=== PATIENT | female | born 1955 | race Caucasian/White ===

== ENCOUNTER 2020-11-03 16:54 | Outpatient (CLI) | payer BC, SELFPAY | END 2020-11-03 16:55 | disposition home or self-care (01) | LOC: ANHCOVIDVC 16:54 | PROVIDERS: PCP Family Medicine | DX: Z23 Encounter for immunization (principal) | CPT/HCPCS: 0001A; 91300 ==

== ENCOUNTER 2020-11-24 16:59 | Outpatient (CLI) | payer BC, SELFPAY | END 2020-11-24 17:00 | disposition home or self-care (01) | LOC: ANHCOVIDVC 16:59 | PROVIDERS: PCP Family Medicine | DX: Z23 Encounter for immunization (principal) | CPT/HCPCS: 0002A; 91300 ==

== ENCOUNTER 2020-12-04 16:21 | Outpatient (CLI) | payer BC, SELFPAY ==
--- NOTE | ~2020-12-04 | MR_ITS ---
EXAMINATION: MR lumbar spine wo con DATE: 12/04/2020 17:22 INDICATION: Other spondylosis and myelopathy. Low back pain. TECHNIQUE: Magnetic resonance imaging (MRI) of the lumbar spine was performed without intravenous con trast. Sequences included sagittal T2-weighted FSE, sagittal T2-weighted FS FSE, sagittal T1-weighted FSE, and axial T2-weighted FSE. COMPARISON: None FINDINGS: There is 5 degrees levocurvature of lumbar spine. There is severely decreased disc height a t T10-T11, T11-T12, T12-L1, L3-L4, L4-L5, and L5-S1 and mildly decreased disc height at L1-L2 and L2- L3 with endplate remodeling. The endplate remodeling is worst at T12-L1. There is anterior wedging of T10, T11, T12, and L1 vertebral bodies. The distal spinal cord signal intensity is normal. The conus medullaris is at T12-L1. There is a 2.7 cm cyst in left kidney. The following disc levels are specif ically discussed: T12-L1: The disc is bulging and has an annular fissure. There is moderate bilateral facet joint osteo arthritis. There is mild right and moderate left neural foraminal stenosis. There is mild central can al stenosis. L1-L2: The disc is bulging. There is severe bilateral facet joint osteoarthritis. There is mild bilat eral neural foraminal stenosis. There is mild central canal stenosis. L2-L3: The disc is bulging. There is severe bilateral facet joint osteoarthritis. There is mild bilat eral neural foraminal stenosis. There is mild central canal stenosis. L3-L4: The disc is bulging and has an annular fissure. There is severe bilateral facet joint osteoart hritis. There is moderate right and mild left neural foraminal stenosis. There is mild central canal stenosis. L4-L5: The disc is bulging and has an annular fissure. There is severe bilateral facet joint osteoart hritis. There is mild bilateral neural foraminal stenosis. There is moderate central canal stenosis. L5-S1: The disc is bulging and has an annular fissure. There is severe bilateral facet joint osteoart hritis. There is mild bilateral neural foraminal stenosis. There is mild central canal stenosis. IMPRESSION: 1. Severe lumbar and lower thoracic spondylosis. Reviewed, dictated and finalized at location A.
== END 2020-12-04 16:22 | disposition home or self-care (01) ==
PROVIDERS: PCP Family Medicine; Visit Provider Family Medicine
DX: M47.16 Other spondylosis with myelopathy, lumbar region (principal); M47.894 Other spondylosis, thoracic region
CPT/HCPCS: 72148

== ENCOUNTER → 2021-02-02 00:20 | Outpatient (CLI) | payer BC, SELFPAY ==
[2021-02-02 21:52] LABS: SARS-CoV-2 RNA PCR Negative
== END ==
PROVIDERS: PCP Family Medicine; Visit Provider Internal Medicine Gastroenterology
DX: Z01.812 Encounter for preprocedural laboratory examination (principal); Z20.822 Contact with and (suspected) exposure to COVID-19
CPT/HCPCS: C9803; U0003; U0005

== ENCOUNTER 2021-02-05 01:02 | Day surgery (SDC) | payer BC, SELFPAY ==
[2021-01-27 09:33] VITALS: BMI 35.7
[2021-02-05 08:12] VITALS: BMI 33.0
--- NOTE | 2021-02-05 08:13 | PC.NURSE ---
OLD BRUISING TO THE RIGHT DORSAL HAND. COBAN WRAP ON RIGHT THUMB FROM RECENT SURGERY. BRACE ON. OLD BRUISING NOTED TO THE BASE OF THE THUMB BELOW THE DRESSING.
[2021-02-05 08:16] VITALS: BP 131/70; PULSE 76; RESP 18; TEMP 36.6; O2SAT 99
--- NOTE | 2021-02-05 08:34 | WPDANESEPPF ---
Anes - Initial Pre Proc Eval Procedure: Operation Date: 02/05/21 09:00 Proposed Procedures p Esophagogastroduodenoscopy & Screening Colonoscopy - Kalia Aguayo MD Date/Time: 02/05/21 08:34 Surgeon: Kalia Aguayo MD Pre Op Diagnosis: GERD, Neoplasm Screening Patient Data Age: 65 Gender: F Height: 5 ft 5 in Weight: 90.2 kg Last Vital Signs Temp 97.8 F 02/05/21 08:16 Pulse 76 02/05/21 08:16 Resp 18 02/05/21 08:16 BP 131/70 02/05/21 08:16 Pulse Ox 99 02/05/21 08:16 Allergies Allergy/AdvReac Type Severity Reaction Status Date / Time escitalopram AdvReac Unknown Other Verified 02/05/21 08:10 Home Medications Medication Instructions Recorded Confirmed Type diazepam 5 mg tablet 5 mg PO ONCE #90 tablet 11/13/19 02/05/21 Rx alprazolam 0.25 mg tablet 0.25 mg PO TID PRN #270 tablet 10/27/20 02/05/21 Rx amlodipine 10 mg tablet 10 mg PO DAILY #90 tablet 10/27/20 02/05/21 Rx diclofenac sodium 50 mg 50 mg PO BID #180 tablet 10/27/20 02/05/21 Rx tablet,delayed release hydrochlorothiazide 12.5 mg tablet 12.5 mg PO DAILY #90 tablet 11/10/20 02/05/21 Rx lisinopril 10 mg tablet 10 mg PO DAILY #90 tablet 12/01/20 02/05/21 Rx sodium,potassium,mag sulfates 17.5 See Rx Instructions PO .COMPLEX 01/14/21 02/05/21 Rx gram-3.13 gram-1.6 gram oral soln #354 ml aspirin 500 mg PO Q4-6H PRN 01/27/21 02/05/21 History nitrofurantoin 100 mg PO Q12H 5 Days #10 cap 02/02/21 02/05/21 Rx monohydrate/macrocrystals 100 mg capsule tramadol 50 mg tablet 100 mg PO Q8H PRN #540 tablet 02/02/21 02/05/21 Rx Patient hx anesthesia problems: none Family hx anesthesia problems: none PMFSH Past Medical History Medical History (Updated 02/05/21 @ 08:34 by Bertrand Brown MD) Arthritis of carpometacarpal (CMC) joint of thumb Essential (primary) hypertension Gastroesophageal reflux disease without esophagitis Lumbar spondylosis with myelopathy Migraine variant without intractability Obesity (BMI 30.0-34.9) Family History Family History Father Family history of liver disease Social History Social History Alcohol intake: never Living arrangements: with family Richard Chacon Final PreProcedure Day of Procedure 02/05/21 08:34 Patient weight: obese Heart: regular rate and rhythm Lungs: clear to auscultation Airway: Mallampati scale class II Neurological: alert and oriented Last oral intake: >/= 8 hours ASA classification: III Emergent: no Anesthetic plan: proceed Anesthesia type and monitoring: general GIVS and standard monitoring Informed Consent: The patient's anesthetic plan and its attendant risks and benefits were discussed with the patient/family/POA. Questions were solicited and answers provided to the satisfaction of the patient/family/POA.
[2021-02-05] MEDS: LACTATED RINGERS 1,000 ML 30 ML IV CONT (08:41)
[2021-02-05 09:42] VITALS: BP 92/58; PULSE 74; RESP 18; O2SAT 100
--- NOTE | 2021-02-05 09:46 | PM.HPGS ---
History of Present Illness History of Present Illness Consent: Risks, benefits, and alternatives have been discussed and questions answered. Patient agrees to proceed with procedure. Chief complaint: GERD, Neoplasm Screening Narrative: Diane Oliveira is a 65 year old female who has been suffering from severe heartburn. this is particularly bad if she is lying prone in bed . She occasionally uses [id number] medications for her symptoms. She denies dysphagia. She is undergoing colon cancer screening as well Review of Systems Review of Systems: All systems reviewed & are unremarkable except as noted in HPI and below PMFSH Past Medical History Medical History Arthritis of carpometacarpal (CMC) joint of thumb Essential (primary) hypertension Gastroesophageal reflux disease without esophagitis Lumbar spondylosis with myelopathy Migraine variant without intractability Obesity (BMI 30.0-34.9) Family History Family History Father Family history of liver disease Social History Social History Alcohol intake: never Living arrangements: with family Meds Home Medications and Allergies Home Medications Medication Instructions Recorded Confirmed Type diazepam 5 mg tablet 5 mg PO ONCE #90 tablet 11/13/19 02/05/21 Rx alprazolam 0.25 mg tablet 0.25 mg PO TID PRN #270 tablet 10/27/20 02/05/21 Rx amlodipine 10 mg tablet 10 mg PO DAILY #90 tablet 10/27/20 02/05/21 Rx diclofenac sodium 50 mg 50 mg PO BID #180 tablet 10/27/20 02/05/21 Rx tablet,delayed release hydrochlorothiazide 12.5 mg tablet 12.5 mg PO DAILY #90 tablet 11/10/20 02/05/21 Rx lisinopril 10 mg tablet 10 mg PO DAILY #90 tablet 12/01/20 02/05/21 Rx sodium,potassium,mag sulfates 17.5 See Rx Instructions PO .COMPLEX 01/14/21 02/05/21 Rx gram-3.13 gram-1.6 gram oral soln #354 ml aspirin 500 mg PO Q4-6H PRN 01/27/21 02/05/21 History nitrofurantoin 100 mg PO Q12H 5 Days #10 cap 02/02/21 02/05/21 Rx monohydrate/macrocrystals 100 mg capsule tramadol 50 mg tablet 100 mg PO Q8H PRN #540 tablet 02/02/21 02/05/21 Rx omeprazole 40 mg PO DAILY #30 cap 02/05/21 Rx Allergies Allergy/AdvReac Type Severity Reaction Status Date / Time escitalopram AdvReac Unknown Other Verified 02/05/21 08:10 Vital Signs Vital Signs - 24 hr 02/05/21 08:16 Temperature 36.6 C Pulse Rate 76 Respiratory Rate 18 Blood Pressure 131/70 Pulse Oximetry 99 Exam Const: General: alert Orientation/consciousness: patient oriented x3 Resp: Auscultation: clear to auscultation bilaterally Cardio: Rhythm: regular rhythm GI: GI Palp: Yes Soft to palpation and No Tenderness to palpation present (GI) Neuro: General: patient oriented x3 Assessment and Plan Assessment and plan (1) GERD (gastroesophageal reflux disease): Code(s): K21.9 - Gastro-esophageal reflux disease without esophagitis Status: Acute Assessment and Plan: EGD with possible biopsy or dilatation or cautery. (2) Colon cancer screening: Code(s): Z12.11 - Encounter for screening for malignant neoplasm of colon Status: Acute Assessment and Plan: Colonoscopy with possible biopsy or polypectomy or cautery or injection of substances.
[2021-02-05 09:52] VITALS: BP 104/64; PULSE 67; RESP 15; O2SAT 100
[2021-02-05 10:02] VITALS: BP 103/76; PULSE 64; RESP 16; O2SAT 100
== END 2021-02-05 10:16 | disposition home or self-care (01) ==
PROVIDERS: PCP Family Medicine; Visit Provider Internal Medicine Gastroenterology
PROC: 0DJ08ZZ Inspection of Upper Intestinal Tract, Via Natural or Artificial Opening Endoscopic (ICD-10-PCS; CPT 43235; principal; 2021-02-05 09:00)
DX: Z12.11 Encounter for screening for malignant neoplasm of colon (principal); K57.30 Diverticulosis of large intestine without perforation or abscess without bleeding; K25.9 Gastric ulcer, unspecified as acute or chronic, without hemorrhage or perforation; K29.50 Unspecified chronic gastritis without bleeding; K21.00 Gastro-esophageal reflux disease with esophagitis, without bleeding; I10 Essential (primary) hypertension; M47.16 Other spondylosis with myelopathy, lumbar region; E66.9 Obesity, unspecified; Z68.33 Body mass index [BMI] 33.0-33.9, adult
CPT/HCPCS: 45378; 43239; 87081; 88305; J2001; J2704; J7120

== ENCOUNTER 2022-07-03 08:23 | Outpatient (CLI) | payer MEDICARE, SELFPAY ==
--- NOTE | ~2022-07-03 | MM_ITS ---
EXAMINATION: MM screening jama BI w nghia HISTORY: Screening mammogram TECHNIQUE: Craniocaudal and mediolateral oblique 3-D tomosynthesis images were obtained and synthetic 2-D images were generated. CAD analysis was submitted and interpreted. COMPARISON: 11/09/2017, 05/10/2014 bilateral screening mammogram BREAST PARENCHYMAL COMPOSITION: There are scattered areas of fibroglandular density. FINDINGS: Bilateral small circumscribed stable axillary lymph nodes. New mid depth circumscribed 5 mm opacity is noted in the upper central left breast. Diagnostic left m ammogram and left breast ultrasound examination are recommended. Otherwise there is no evidence of suspicious mass, calcification, or architectural distortion to sugg est malignancy in either breast. There has been no other suspicious interval change. IMPRESSION: 1. New 5 mm circumscribed opacity in the upper mid left breast at mid depth 2. Diagnostic left mammogram and targeted left breast ultrasound examination are recommended BI-RADS Category 0: Incomplete: Needs additional imaging evaluation. Reviewed, dictated and finalized at location A. 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 New 5 mm circumscribed opacity in the upper mid left breast at mid depth 2. Diagnostic left mammogram and targeted left breast ultrasound examination ar yaya recommended BI-RADS Category 0: Incomplete: Needs additional imaging evaluation.
--- NOTE | ~2022-07-03 | DEXA_ITS ---
Bone Density Report Name: ASTER VIDALES Age: 67 Sex: Female Ethnicity: White Date of : 1955 Indication: osteopenia; height loss; prior fracture; postmenopausal Referring Provider: JOHN BRISENO Study: Bone densitometry was performed. Exam Date: July 03, 2022 Accession number: [id number] Bone Density: Region BMD T-score Z-score Classification AP Spine(L1-L4) 0.926 -1.1 0.7 Osteopenia Femoral Neck (Left) 0.596 -2.3 -0.8 Osteopenia Total Hip (Left) 0.690 -2.1 -0.8 Osteopenia Femoral Neck (Right) 0.598 -2.3 -0.8 Osteopenia Total Hip (Right) 0.647 -2.4 -1.2 Osteopenia Total Hip Mean 0.669 -2.3 -1.0 Osteopenia World Health Organization criteria for BMD impression classify patients as: Normal (T-score at or above -1.0), Osteopenia (T-score between -1.0 and -2.5), or Osteoporosis (T-score at or below -2.5). 10-year Fracture Risk(1): Major Osteoporotic Fracture 20% Hip Fracture 5.6% Reported Risk Factors: [place] (), Neck BMD=0.596, BMI=28.1, previous fracture, smoking (1) FRAX(R) Version 3.08. Fracture probability calculated for an untreated patient. Fracture probability may be lower if the patient has received treatment. Previous Exams: Region Exam Age BMD T-score BMD Change BMD Change Date g/cm2 vs Baseline vs Previous Total Hip(Left) 07/03/2022 67 0.690 -2.1 -0.016 (-2.3%) -0.016 (-2.3%) 11/09/2017 62 0.706 -1.9 Total Hip(Right) 07/03/2022 67 0.647 -2.4 -0.046 (-6.6%) -0.046 (-6.6%) 11/09/2017 62 0.693 -2.0 *Denotes significance at 95% confidence level, LSC for Total Hip = 0.027 g/cm2 Clinical Information Provided by Patient: Has had a low trauma fracture Smokes Has used the following medications: Calcium Patient maximum height was 66 Menopause Age: 47 Does not regularly consume dairy products Drinks caffeinated beverages Onset of menses at age 17 Number of children 3 Impression: The patient has low bone mass, based on the Right Total Hip T-score. The patient has an estimated ten-year risk of hip fracture of 5.6% and an estimated ten-year risk of major fracture of 20%, based on the WHO FRAX algorithm. The patient has risk factors, including: smoking, previous fracture. The BMD for the Total Hip(Right) decreased, changing by -6.6% since the last DXA exam. Discussion: BONE DENSITY IS LOW AT ONE OR MORE SKELETAL SITES. THE PATIENT'S BMD AND CLINICAL RISK FACTORS CONTRIBUTE TO THIS PATIENT'S HIGH RISK OF FRACTURE.
== END 2022-07-03 08:24 | disposition home or self-care (01) ==
PROVIDERS: PCP Family Medicine; Visit Provider Family Medicine
DX: Z12.31 Encounter for screening mammogram for malignant neoplasm of breast (principal); R29.890 Loss of height; R92.8 Other abnormal and inconclusive findings on diagnostic imaging of breast; M85.88 Other specified disorders of bone density and structure, other site; M85.852 Other specified disorders of bone density and structure, left thigh; M85.851 Other specified disorders of bone density and structure, right thigh
CPT/HCPCS: 77063; 77067; 77080

== ENCOUNTER 2022-07-26 12:10 | Outpatient (CLI) | payer MEDICARE, SELFPAY ==
--- NOTE | ~2022-07-26 | MMUS_ITS ---
EXAMINATION: MM diagnostic jama LT w nghia, US breast LT limited HISTORY: Left breast mass on screening mammogram TECHNIQUE: Additional 3-D tomosynthesis images of the left breast were performed and synthetic 2-D im ages were generated. CAD analysis was submitted and interpreted. High resolution limited left breast ultrasound was performed. COMPARISON: 07/03/2022, 11/09/2017, 05/10/2014 FINDINGS: MAMMOGRAPHIC FINDINGS: There is a 5 mm oval, circumscribed, high density mass in the middle third of the upper breast at the 1:00 location 7 cm from the nipple. ULTRASOUND: There is a 4 mm oval, circumscribed, parallel, hypoechoic mass with an echogenic rim, no posterior fe atures, and no internal vascularity at the 12:00 location 7 cm from the nipple. IMPRESSION: 1. Indeterminate left breast mass. Given the absence of history of trauma in this location, further e valuation with ultrasound-guided biopsy is recommended. BI-RADS category 4, suspicious findings. Reviewed, dictated and finalized at location A. N RESOURCES COMPENSATION ANALYST IMPRESSION: 1. Indeterminate left breast mass. Given the absence of history of trauma in th is location, further evaluation with ultrasound-guided biopsy is recommended. BI-RADS category 4, suspicious findings.
== END 2022-07-26 12:11 | disposition home or self-care (01) ==
PROVIDERS: PCP Family Medicine; Visit Provider Family Medicine
DX: Z12.31 Encounter for screening mammogram for malignant neoplasm of breast (principal); R92.8 Other abnormal and inconclusive findings on diagnostic imaging of breast
CPT/HCPCS: 76642; 77061; 77065; G0279

== ENCOUNTER 2022-08-04 09:01 | Outpatient (CLI) | payer MEDICARE, SELFPAY ==
--- NOTE | ~2022-08-04 | MMUS_ITS ---
EXAMINATION: US breast biopsy LT w image, MM post biopsy invasive LT DATE: 08/04/2022 10:19 (accession [id number]), 08/04/2022 10:32 (accession [id number]) INDICATION: Indeterminate mass at the 12:00 location of the left breast. Ultrasound-guided core biops y is requested to evaluate for malignancy. TECHNIQUE AND FINDINGS: The risks and potential benefits of the procedure were discussed with the patient including bleeding and infection. A time out was performed. The skin of the left breast was prepared and draped in usual sterile fashion. 1% lidocaine was used for superficial anesthesia. 1% lidocaine with epinephrine was used for deep anesthesia. A vacuum-assisted biopsy needle was advanced through to the outer edge of the region of interest from a lateral approach utilizing sonographic guidance. A total of two tissue core samples were obtained through the lesion. A tissue marker clip was then placed at the biopsy site. Hemostasis was achieved. A sterile bandage was applied. The patient tolerated procedure well and there was no evidence of immediate complication. The patient was given verbal instructions to return to the Emergency Department in the event of severe breast pa in or rapid breast enlargement. A two view left breast mammogram was obtained to document tissue neo er clip placement. The mass was no longer visible after the second sample. Final position of the biop sy marker is approximately 10 mm posterior to the biopsy site. IMPRESSION: 1. Successful ultrasound-guided vacuum-assisted biopsy of left breast mass with tissue marker placeme nt. Reviewed, dictated and finalized at location A. 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 Successful ultrasound-guided vacuum-assisted biopsy of left breast mass with tissue marker placement.
== END 2022-08-04 09:02 | disposition home or self-care (01) ==
LOC: ANHIMG 09:01
PROVIDERS: PCP Family Medicine; Visit Provider Family Medicine
DX: R92.8 Other abnormal and inconclusive findings on diagnostic imaging of breast (principal)
CPT/HCPCS: 19083; 88305; 88342; A4648

== ENCOUNTER 2022-12-29 15:04 | Outpatient (CLI) | payer MEDICARE, SELFPAY ==
--- NOTE | ~2022-12-29 | MR_ITS ---
EXAMINATION: MR lumbar spine wo con DATE: 12/29/2022 16:43 INDICATION: Low back pain. Left hip and leg pain. TECHNIQUE: Magnetic resonance imaging (MRI) of the lumbar spine was performed without intravenous con trast. Sequences included sagittal T2-weighted FSE, sagittal T2-weighted FS FSE, sagittal T1-weighted FSE, and axial T2-weighted FSE. COMPARISON: Lumbar spine MRI 12/04/2020 FINDINGS: There is 5 degrees dextrocurvature of lumbar spine. There is chronic anterior wedging of T1 1 and T12 vertebral bodies. There is a burst fracture of L2 with 1/5 loss of height, edema-like marro w signal intensity, and retropulsion of bone 3 mm into central spinal canal. There is severely decrea sed disc height at T10-T11, T11-T12, and T12-L1, moderately decreased disc height at L1-L2 and L2-L3, and severely decreased disc height from L3-L4 through L5-S1 with endplate remodeling. There is ligam entum flavum hypertrophy at the disc levels from L1-L2 through L4-L5. There is a 3.3 cm cyst in left kidney. The following disc levels are specifically discussed: L1-L2: The disc is bulging and has an annular fissure. There is severe bilateral facet joint osteoart hritis. There is mild right and moderate left neural foraminal stenosis. There is mild central canal stenosis. L2-L3: The disc is bulging and has an annular fissure. There is severe bilateral facet joint osteoart hritis. There is mild bilateral neural foraminal stenosis. There is mild central canal stenosis. L3-L4: The disc is bulging. There is severe bilateral facet joint osteoarthritis. There is moderate r ight and mild left neural foraminal stenosis. There is mild central canal stenosis. L4-L5: The disc is bulging and has an annular fissure. There is severe bilateral facet joint osteoart hritis. There is mild bilateral neural foraminal stenosis. There is mild central canal stenosis. L5-S1: The disc is bulging and has an annular fissure. There is severe bilateral facet joint osteoart hritis. There is mild bilateral neural foraminal stenosis. There is mild central canal stenosis. IMPRESSION: 1. Acute/subacute burst fracture of L2. 2. Severe lumbar spondylosis, stable from 12/04/2020. Reviewed, dictated and finalized at location A.
--- NOTE | ~2022-12-29 | XR_ITS ---
EXAMINATION: XR hip LT min 2V DATE: 12/29/2022 15:37 INDICATION: Left hip pain. TECHNIQUE: 2 views of left hip were obtained. COMPARISON: None. FINDINGS: Bone alignment is normal. No fracture. There is mild left hip osteoarthritis. IMPRESSION: 1. Mild left hip osteoarthritis. Reviewed, dictated and finalized at location A.
== END 2022-12-29 15:05 | disposition home or self-care (01) ==
PROVIDERS: PCP Family Medicine
DX: M47.896 Other spondylosis, lumbar region (principal); S32.021A Stable burst fracture of second lumbar vertebra, initial encounter for closed fracture; X58.XXXA Exposure to other specified factors, initial encounter; M16.12 Unilateral primary osteoarthritis, left hip
CPT/HCPCS: 72148; 73502

== ENCOUNTER 2023-03-16 15:46 | Outpatient (CLI) | payer MEDICARE, SELFPAY ==
--- NOTE | ~2023-03-16 | CT_ITS ---
EXAMINATION: CT thoracic lumbar wo con DATE: 03/16/2023 16:11 INDICATION: Back pain. Compression fracture of L2. TECHNIQUE: Computed tomography (CT) of the thoracic and lumbar spine was performed without intravenou s contrast. Automated exposure control and iterative reconstruction technique were employed. The dose -length product was 1320.93 mGy-cm. COMPARISON: Lumbar spine MRI 12/29/2022 FINDINGS: CT THORACIC SPINE: There is 13 degrees levoscoliosis of thoracic spine. There is mild chronic anterio r wedging of T11 vertebral body. There is a chronic compression fracture of T12 with 2/5 loss of heig ht. There is mildly decreased disc height at T4-T5, T5-T6, and T6-T7, severely decreased disc height at T7-T8, mildly decreased disc height at T8-T9, moderately decreased disc height at T9-T10, and juliana rely decreased disc height at T10-T11 and T11-T12. There is multilevel facet joint osteoarthritis, se carlos on the right at T8-T9 and T9-T10 and on the left at T1-T2, T8-T9, and T9-T10. On the right, ther e is mild neural foraminal stenosis at T5-T6, T6-T7, T7-T8, T9-T10, and T10-T11. On the left, there i s mild neural foraminal stenosis at T1-T2 and T8-T9. There is mild central canal stenosis at T7-T8, T 9-T10, T10-T11, and T11-T12. CT LUMBAR SPINE: There is 12 degrees dextroscoliosis of thoracolumbar spine. There is a burst fractur e of inferior endplate of L1 with 1/5 loss of height, new from 12/29/2022. There is a burst fracture of L2 with 3/5 loss of height and retropulsion of bone 5 mm into central spinal canal, worsened from 12/29/2022. There is 3 mm retrolisthesis of L1 on L2. There is severely decreased disc height at T12-L1, moderately decreased disc height at L1-L2, and severely decreased disc height from L3-L4 through L5-S 1. There is Baastrup disease at L2-L3 and L3-L4. The following disc levels are specifically discussed : T12-L1: The disc is bulging. There is mild bilateral facet joint osteoarthritis. There is mild right and moderate left neural foraminal stenosis. There is mild central canal stenosis. L1-L2: The disc is bulging. There is severe right and moderate left facet joint osteoarthritis. There is mild right and moderate left neural foraminal stenosis. There is moderate central canal stenosis. L2-L3: The disc is bulging. There is severe bilateral facet joint osteoarthritis. There is mild bilat eral neural foraminal stenosis. There is mild central canal stenosis. L3-L4: The disc is bulging. There is severe bilateral facet joint osteoarthritis. There is moderate a nd mild left neural foraminal stenosis. There is mild central canal stenosis. L4-L5: The disc is bulging. There is severe bilateral facet joint osteoarthritis. There is mild bilat eral neural foraminal stenosis. There is mild central canal stenosis. There is moderate stenosis of r ight lateral recess. L5-S1: The disc is bulging. There is severe bilateral facet joint osteoarthritis. There is mild bilat eral neural foraminal stenosis. There is mild central canal stenosis. IMPRESSION: 1. Acute/subacute L1 burst fracture, new from 12/29/2022. 2. Subacute L2 burst fracture, worsened from 12/29/2022. 3. Severe thoracic and lumbar spondylosis. 4. Thoracic levoscoliosis and thoracolumbar dextroscoliosis. Reviewed, dictated and finalized at location A.
--- NOTE | ~2023-03-16 | XR_ITS ---
EXAMINATION: XR scoliosis survey DATE: 03/16/2023 16:28 INDICATION: Scoliosis. TECHNIQUE: Anteroposterior and lateral views of the entire spine standing with breast gutierrez were ob tained. COMPARISON: CT thoracic and lumbar spine 03/16/2023 FINDINGS: Left femoral head stands 7 mm higher than the right. There are 12 pairs of ribs. There are 5 nonrib-bearing lumbar segments. There is a subacute burst fracture of L2 with 3/5 loss of height. T here is 5 mm retrolisthesis of L1 on L2. There is a burst fracture of L1 inferior endplate with 1/5 l oss of height. There is mild chronic anterior wedging of T11 and T12 vertebral bodies. There is mild kyphosis of cervical spine. There is 18 degrees levoscoliosis from T3 to T12 by the Mcintyre method. Ther e is 16 degrees dextroscoliosis from T12 to L2. There is severe cervical, thoracic, and lumbar spondy losis. IMPRESSION: 1. 18 degrees levoscoliosis from T3 to T12 and 16 degrees dextroscoliosis from T12 to L2. 2. Left femoral head stands 7 mm higher than the right. 3. Acute/subacute burst fracture of L1. 4. Subacute burst fracture of L2. 5. Severe spondylosis. Reviewed, dictated and finalized at location A.
== END 2023-03-16 15:47 | disposition home or self-care (01) ==
PROVIDERS: PCP Family Medicine; Visit Provider Neurological Surgery
DX: M41.9 Scoliosis, unspecified (principal); S32.020A Wedge compression fracture of second lumbar vertebra, initial encounter for closed fracture; X58.XXXA Exposure to other specified factors, initial encounter; M47.894 Other spondylosis, thoracic region; M47.896 Other spondylosis, lumbar region
CPT/HCPCS: 72082; 72128; 72131

== ENCOUNTER 2023-04-11 09:47 | Outpatient (CLI) | payer MEDICARE, SELFPAY ==
--- NOTE | 2023-04-11 | ECG_ITS ---
Measurements Intervals [place] Rate: 85 P: 54 GA: 163 QRS: 35 QRSD: 97 T: 72 QT: 325 QTc: 388 Interpretive Statements SINUS RHYTHM NORMAL ELECTROCARDIOGRAM NO PREVIOUS ECG AVAILABLE FOR COMPARISON Electronically Signed On 04-11-2023 16:57:23 CDT by Heron Leo M.D.
== END 2023-04-11 09:48 | disposition home or self-care (01) ==
LOC: ANHLAB 09:49 → ANHCARD 09:51
PROVIDERS: PCP Family Medicine; Visit Provider Neurological Surgery
DX: Z01.818 Encounter for other preprocedural examination (principal)
CPT/HCPCS: 93005

== ENCOUNTER 2023-08-30 09:13 | Outpatient (CLI) | payer MEDICARE, SELFPAY ==
--- NOTE | ~2023-08-30 | XR_ITS ---
EXAM: XR thoracic spine 2V DATE: 08/30/2023 09:46 HISTORY: STATUS POST THORACIC SPINAL FUSION . COMPARISON: None available. FINDINGS: Osteopenia. Thoracolumbar fusion, no complication detected. Grade 1 anterolistheses at T8- 9 and T9-10. Moderate height loss at T8. Mild height loss at T11-L1. Multilevel degenerative disc dis ease. Incidental note of senescent/interstitial changes in the lungs. IMPRESSION: Grade 1 anterolistheses at T8 and T9-10. Reviewed, dictated and finalized at location K. 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
--- NOTE | ~2023-08-30 | XR_ITS ---
EXAM: XR lumbar spine 2-3V DATE: 08/30/2023 09:46 HISTORY: STATUS POST THORACIC SPINAL FUSION . COMPARISON: None available. FINDINGS: Thoracolumbar fusion spanning T10-S2 with bone graft material. Uncomplicated appearing kedar dware. The vertebral bodies are aligned. Stable severe compression deformity at L2. Stable mild compr ession deformity/height loss at T11, T12, and L1. Decreased osseous mineralization. Clear lung bases. . IMPRESSION: Extensive thoracolumbar posterior fusion. No radiographic evidence of hardware-related co mplication. Stable multilevel compression deformities. Reviewed, dictated and finalized at location K. Y FARM SUPERVISOR IMPRESSION: Extensive thoracolumbar posterior fusion. No radiographic evidence of hardware-related complication. Stable multilevel compression deformities.
== END 2023-08-30 09:14 | disposition home or self-care (01) ==
PROVIDERS: PCP Family Medicine; Visit Provider Neurological Surgery
DX: Z98.1 Arthrodesis status (principal)
CPT/HCPCS: 72070; 72100

== ENCOUNTER 2023-10-17 11:49 | Outpatient (CLI) | payer MEDICARE, SELFPAY ==
--- NOTE | ~2023-10-17 | XR_ITS ---
EXAMINATION:XR cervical spine min 6V DATE: 10/17/2023 12:10 INDICATION: Cervical radiculopathy TECHNIQUE: AP, lateral in neutral, flexion, extension, lateral swimmers and odontoid views of the cer vical spine are provided. COMPARISON: None FINDINGS: There are 2 mm of anterolisthesis of C4 on C5. No hypermobility is present with flexion or extension. The odontoid process is intact. No fracture is identified. There is severe loss of interve rtebral disc space height at C5-6 and C6-7. The vertebral body heights are maintained. Small degenera tive osteophytes project from the anterior endplates of multiple vertebral bodies. There is multileve l severe facet and uncovertebral joint osteoarthritis. Prevertebral soft tissues are normal. IMPRESSION: 1. Severe cervical spondylosis without acute findings. Reviewed, dictated and finalized at location B. UCT ASSURANCE ENGINEER
== END 2023-10-17 11:50 ==
PROVIDERS: PCP Family Medicine; Visit Provider Family Medicine
DX: M47.22 Other spondylosis with radiculopathy, cervical region (principal)
CPT/HCPCS: 72052

== ENCOUNTER 2023-12-05 09:49 | Outpatient (CLI) | payer MEDICARE, SELFPAY ==
--- NOTE | ~2023-12-05 | XR_ITS ---
Thoracic spine: Clinical Indication: Status post fusion COMPARISON: 08/30/2023 AP and lateral views were performed. Stable posterior fusion hardware extending from probably T10 through the lumbar spine. There is mild compression fracture of T8. There is compression fracture of L1 and L2. Paravertebral soft tissues ap pear normal. Impression: No significant change from prior exam. Stable posterior fixation hardware from T10 through the lumbar spine. Stable compression fractures of T8, L1, L2. Reviewed, dictated and finalized at location . Impression: No significant change from prior exam. Stable posterior fixation hardware from T10 through the lumbar spine. Stable co mpression fractures of T8, L1, L2.
--- NOTE | ~2023-12-05 | XR_ITS ---
Lumbosacral Spine: AP and lateral views Clinical History: Status post fusion COMPARISON: 08/30/2023 FINDINGS: Findings: Posterior fusion hardware is present from T10 through S2. Compression fractures of L2 and L 1 are present. The sacroiliac joints are normally outlined. Impression: Stable posterior fusion from T10 through S2, with compression fractures of L1 and L2. Reviewed, dictated and finalized at location . Impression: Stable posterior fusion from T10 through S2, with compression fractures of L1 a nd L2.
== END 2023-12-05 09:50 ==
PROVIDERS: PCP Family Medicine; Visit Provider Neurological Surgery
DX: Z98.1 Arthrodesis status (principal)
CPT/HCPCS: 72070; 72100

== ENCOUNTER 2024-03-30 14:06 | Outpatient (CLI) | payer MEDICARE, SELFPAY ==
--- NOTE | ~2024-03-30 | XR_ITS ---
EXAMINATION: XR thoracic spine 2V, XR lumbar spine 2-3V DATE: 03/30/2024 14:25 INDICATION: Scoliosis. TECHNIQUE: 1. AP and lateral views of the thoracic spine were obtained. 2. AP, lateral and coned-down lateral lumbosacral views of the lumbar spine were obtained. COMPARISON: Radiographs dated 12/05/[address] dated 03/16/2023 FINDINGS: Mild lower thoracolumbar kyphosis with 15 degree dextroscoliosis. 10 degrees compensatory thoracic le vocurvature. T10-S2 instrumented posterior spinal fusion with bilateral vertical anu and pedicle scre w fixations at each level with the exception of L2 where there is a chronic burst fracture with 50% v ertebral body height loss. Additional unchanged compression fractures with 20-25% anterior vertebral body height loss at T8, T11, T12 and L1. There appear to be laminectomies at several levels in the mi d to upper lumbar spine. Severe disc height loss at T11-T12, T12-L1, L4-L5 and L5-S1. Additional juliana re mild to moderate disc height loss the thoracic spine with lower thoracic predominance. Moderate os teoarthritis at the bilateral sacroiliac joints. IMPRESSION: 1. 15 degrees thoracolumbar dextroscoliosis with 10 degree thoracic levocurvature. 2. Multiple compression fractures in the lumbar and lower thoracic spine with T10-S2 instrumented pos terior spinal fusion spanning a more severe L2 burst fracture with unchanged 50% vertebral body heigh t loss. 3. Severe lumbar and lower thoracic spondylosis. Reviewed, dictated and finalized at location A. IMPRESSION: 1. 15 degrees thoracolumbar dextroscoliosis with 10 degree thoracic levocurvatu re. 2. Multiple compression fractures in the lumbar and lower thoracic spine with T 10-S2 instrumented posterior spinal fusion spanning a more severe L2 burst frac ture with unchanged 50% vertebral body height loss. 3. Severe lumbar and lower thoracic spondylosis.
== END 2024-03-30 14:07 ==
PROVIDERS: PCP Family Medicine; Visit Provider Neurological Surgery
DX: M41.84 Other forms of scoliosis, thoracic region (principal); M48.56XA Collapsed vertebra, not elsewhere classified, lumbar region, initial encounter for fracture; M48.54XA Collapsed vertebra, not elsewhere classified, thoracic region, initial encounter for fracture; M43.06 Spondylolysis, lumbar region; M43.04 Spondylolysis, thoracic region
CPT/HCPCS: 72070; 72100

== ENCOUNTER 2024-11-28 08:48 | Outpatient (CLI) | payer MEDICARE, SELFPAY ==
--- NOTE | ~2024-11-28 | DEXA_ITS ---
Bone Density Report Name: ASTER VIDALES Age: 69 Sex: Female Ethnicity: White Date of : 1955 Indication: osteopenia; height loss; prior fracture; Referring Provider: JOHN BRISENO Study: Bone densitometry was performed. Exam Date: November 28, 2024 Accession number: [id number] Bone Density: Region BMD T-score Z-score Classification Femoral Neck (Left) 0.644 -1.8 -0.2 Osteopenia Total Hip (Left) 0.660 -2.3 -1.0 Osteopenia Femoral Neck (Right) 0.635 -1.9 -0.3 Osteopenia Total Hip (Right) 0.606 -2.8 -1.4 Osteoporosis Total Hip Mean 0.633 -2.6 -1.2 Osteoporosis World Health Organization criteria for BMD impression classify patients as: Normal (T-score at or above -1.0), Osteopenia (T-score between -1.0 and -2.5), or Osteoporosis (T-score at or below -2.5). 10-year Fracture Risk: FRAX not reported because: Some T-score for Spine Total or Hip Total or Femoral Neck at or below -2.5 Previous Exams: Region Exam Age BMD T-score BMD Change BMD Change Date g/cm2 vs Baseline vs Previous Total Hip(Left) 11/28/2024 69 0.660 -2.3 -0.046 (-6.6%) -0.030 (-4.4%) 07/03/2022 67 0.690 -2.1 -0.016 (-2.3%) -0.016 (-2.3%) 11/09/2017 62 0.706 -1.9 Total Hip(Right) 11/28/2024 69 0.606 -2.8 -0.087 (-12.6% -0.041 (-6.4%) 07/03/2022 67 0.647 -2.4 -0.046 (-6.6%) -0.046 (-6.6%) 11/09/2017 62 0.693 -2.0 *Denotes significance at 95% confidence level, LSC for Total Hip = 0.027 g/cm2 # Denotes dissimilar scan types or analysis methods Clinical Information Provided by Patient: Has had a low trauma fracture Smokes Has used the following medications: Vitamin D, Calcium Patient maximum height was 66 Menopause Age: 47 No regular weight bearing exercise Does not regularly consume dairy products Drinks caffeinated beverages Onset of menses at age 17 Number of children 3 Impression: The patient has established osteoporosis, based on the Right Total Hip T-score and the existence of a prior fracture. The patient has risk factors, including: smoking, previous fracture. No significant bone loss was observed. Discussion: HIGH RISK OF FRACTURE. BONE DENSITY IS UNDESIRABLY LOW AT ONE OR MORE SKELETAL SITES, CONSISTENT WITH POSTMENOPAUSAL OSTEOPOROSIS. This patient's lowest T-score, in a patient who has previously fractured, meets the World Health Organization's (WHO) criteria for severe osteoporosis. In untreated patients, the risk of osteoporotic fracture increases approximately two-fold for each 1.0 SD decrease in T-score. Low bone density is not the only risk factor for fracture; also consider factors such as patient's age, frailty or poor health, risk of falling, risk of injury, previous osteoporotic fracture, family history of osteoporosis, cigarette smoking, low body weight, etc. Not everyone with low bone mineral density has osteoporosis; osteomalacia and other metabolic bone disorders should also be considered. Patients who have osteoporosis should be evaluated for specific diseases and conditions (secondary causes) that may cause or contribute to bone loss. The [place] Association of Clinical Endocrinologists (AACE) and National Osteoporosis Foundation (NOF) recommend pharmacologic intervention for all postmenopausal women whose T-score is in this range. The patient should follow a healthful lifestyle (good nutrition with adequate calcium and vitamin D, and appropriate weight-bearing exercise). Follow-Up: Consider a repeat BMD and Vertebral Fracture Assessment (VFA) exam in 2 years or sooner if medically necessary, to reassess this patient's status. Reported by: JEREMY on 11/28/2024 9:24:00 AM. Reviewed, dictated and finalized at location ACaesar MANE
--- OUTSIDE RECORDS SUMMARY | 2024-11-28 09:06 | XMS_ITS | Referral Summary ---
Author Organization [facility] Address [address] [place] [address] Care Team Providers Care Psychology Tech Name Role Phone Heorn Abreu MD Primary Care Provider [phone] [phone] Allergies No known active allergies Medications diazePAM (VALIUM) 5 mg tablet Take 5 mg by mouth every 6 (six) hours as needed. 1 07/31/2018 Active diclofenac XR (VOTAREN XR) 100 mg 24 hr tablet Take 100 mg by mouth daily. 2 07/14/2018 Active hydroCHLOROthiaz anson (MICROZIDE) 12.5 mg capsule Take by mouth daily. 3 08/07/2018 Active traMADol ER (ULTRAM-ER) 300 mg 24 hr tablet Take 300 mg by mouth daily. 3 05/14/2018 Active multivitamin tabletIndication s:Vitamin Deficiency Prevention Take 1 tablet by mouth. Active chromium-brindal crum 200-500 mcg-mg tablet Take by mouth. Active raNITIdine (ZANTAC) 150 mg tablet Take 150 mg by mouth as needed for heartburn. Active omega-3 fatty acids/dha/epa (MEGARED [id number]-7 ORAL) Take by mouth. Active Active Problems Problem Noted Date Diagnosed Date Dizziness 08/10/2018 Assessment & Plan (08/10/2018 4:20 PM DIRECTOR OF REHABILITATIVE SERVICES): She has a very mild orthostatic drop in her blood pressure, but with a blood pressure over 140 systolic she still felt slightly dizzy. Much of her dizziness actually sounds like vertigo, and she does have a past history of ear issues. Dyspnea on exertion 08/09/2018 Assessment & Plan (08/10/2018 4:19 PM DIRECTOR OF REHABILITATIVE SERVICES): Sudden onset of exertional dyspnea several months ago. It is surprising that she is still able to walk on her treadmill without being limited by dyspnea. Her resting electrocardiogram and exam are unremarkable. Will obtain an echo Doppler and stress echo to further evaluate. If the showed no cardiac explanation, pulmonary testing may be the next step. Essential hypertension 08/09/2018 Assessment & Plan (08/10/2018 4:20 PM DIRECTOR OF REHABILITATIVE SERVICES): Blood pressure is mildly elevated, which she says is common for her in a doctor's office. At home, her blood pressure is normal. No change at this time in antihypertensive therapy. Would continue to avoid lisinopril for now, although her cough has not yet improved. Cough may have predated the beginning of lisinopril, so may be completely unrelated to Marvin inhibitors. Social History Tobacco Use Types Packs/Day Years Used Date Smoking Tobacco: Never Smokeless Tobacco: Never Alcohol Use Standard Drinks/Week Comments No 0 (1 standard drink = 0.6 oz pur e alcohol) Comments Unknown Sex and Gender Information Value Date Recorded Sex Assigned at Not on file Legal Sex Female 6:13 AM DIRECTOR OF REHABILITATIVE SERVICES Gender Identity Not on file Sexual Orientation Not on file Last Filed Vital Signs Vital Sign Reading Time Taken Comments Blood Pressure 142/80 08/09/2018 4:06 PM DIRECTOR OF REHABILITATIVE SERVICES Pulse 62 08/09/2018 2:41 PM DIRECTOR OF REHABILITATIVE SERVICES Temperature - - Respiratory Rate - - Oxygen Saturation - - Inhaled Oxygen Concentration - - Weight 85.7 kg (189 lb) 08/09/2018 2:41 PM DIRECTOR OF REHABILITATIVE SERVICES Height 163.8 cm (5' 4.5 ) 08/09/2018 2:41 PM DIRECTOR OF REHABILITATIVE SERVICES Body Mass Index 31.94 08/09/2018 2:41 PM DIRECTOR OF REHABILITATIVE SERVICES Plan of Treatment Not on file Insurance [employer] ACCESS ANTHEM ACCESS Care Teams Psychology Tech Relationship Specialty Start Date End Date Heron Abreu MD PCP - General 11/09/17
--- OUTSIDE RECORDS SUMMARY | 2024-11-28 09:06 | XMS_ITS | Clinical Summary ---
Author Organization [facility] Address [address] [place] [address] Care Team Providers Care Pile Driver Engineer Name Role Phone Heron Abreu MD Primary Care Provider [phone] [phone] Allergies No known active allergies Medications diazePAM [...] for heartburn. Active omega-3 fatty acids/dha/epa (MEGARED [id number] ORAL) Take by mouth. Active Active Problems Problem Noted Date Diagnosed Date Dizziness 08/10/2018 Assessment & Plan (08/10/2018 4:20 PM CHIEF EXECUTIVE): She has a very mild orthostatic drop in her blood pressure, but with a blood pressure over 140 systolic she still felt slightly dizzy. Much of her dizziness actually sounds like vertigo, and she does have a past history of ear issues. Dyspnea on exertion 08/09/2018 Assessment & Plan (08/10/2018 4:19 PM CHIEF EXECUTIVE): Sudden onset of exertional dyspnea several months [...] 08/09/2018 Assessment & Plan (08/10/2018 4:20 PM CHIEF EXECUTIVE): Blood pressure is mildly elevated, which she says is common for her in a doctor's office. At home, her blood pressure is normal. No change at this time in antihypertensive therapy. Would continue to avoid lisinopril for now, although her cough has not yet improved. Cough may have predated the beginning of lisinopril, so may be completely unrelated to Marvin inhibitors. Surgical History Surgery Date Site/Laterality Comments CT STAPEDECTOMY/STAPEDOTOMY Stapedotomy - (Added by TW Conv) CT NEUROPLASTY &/TRANSPOS MEDIAN NRV CARPAL TUNNE Neuroplasty Decompression Median Nerve At Carpal Tunnel - (Added by TW Conv) CT LIG/TRNSXJ FLP TUBE ABDL/ VAG APPR UNI/BI Tubal Ligation - (Added by TW Conv) Social History Tobacco Use Types Packs/Day Years Used Date Smoking Tobacco: Never Smokeless Tobacco: Never Alcohol Use Standard Drinks/Week Comments No 0 (1 standard drink = 0.6 oz pur e alcohol) Comments Unknown Sex and Gender Information Value Date Recorded Sex Assigned at Not on file Legal Sex Female 6:13 AM CHIEF EXECUTIVE Gender Identity Not on file Sexual Orientation Not on file Obstetrics History Last Filed Vital Signs Vital Sign Reading Time Taken Comments Blood Pressure 142/80 08/09/2018 4:06 PM CHIEF EXECUTIVE Pulse 62 08/09/2018 2:41 PM CHIEF EXECUTIVE Temperature - - Respiratory Rate - - Oxygen Saturation - - Inhaled Oxygen Concentration - - Weight 85.7 kg (189 lb) 08/09/2018 2:41 PM CHIEF EXECUTIVE Height 163.8 cm (5' 4.5 ) 08/09/2018 2:41 PM CHIEF EXECUTIVE Body Mass Index 31.94 08/09/2018 2:41 PM CHIEF EXECUTIVE Plan of Treatment Not on file Insurance ANTHEM ACCESS ANTHEM ACCESS Care Teams Pile Driver Engineer Relationship Specialty Start Date End Date Heron Abreu MD PCP - General 11/09/17
== END 2024-11-28 08:49 | disposition home or self-care (01) ==
LOC: ANHIMG 08:50
PROVIDERS: PCP Family Medicine; Visit Provider Family Medicine
DX: S32.009A Unspecified fracture of unspecified lumbar vertebra, initial encounter for closed fracture (principal); Z78.0 Asymptomatic menopausal state; X58.XXXA Exposure to other specified factors, initial encounter; M85.88 Other specified disorders of bone density and structure, other site; M85.852 Other specified disorders of bone density and structure, left thigh; M85.851 Other specified disorders of bone density and structure, right thigh; M81.0 Age-related osteoporosis without current pathological fracture
CPT/HCPCS: 77080

== ENCOUNTER 2024-12-05 12:46 | Outpatient (CLI) | payer MEDICARE, SELFPAY ==
--- NOTE | ~2024-12-05 | MM_ITS ---
EXAMINATION: MM diagnostic jama BI w nghia HISTORY: History of previous benign left breast biopsy. TECHNIQUE: Additional 3-D tomosynthesis images of the breasts were performed and synthetic 2-D images were generated. CAD analysis was submitted and interpreted. COMPARISON: Comparison to multiple prior studies sequentially, with oldest reviewed study dated 11/09. BREAST PARENCHYMAL COMPOSITION: Not dense: There are scattered areas of fibroglandular density. FINDINGS: There are no suspicious masses, calcifications or architectural distortion in either breast to suggest malignancy. IMPRESSION: 1. No evidence for malignancy in either breast. 2. Routine yearly screening mammogram and regular clinical breast examination are recommended. BI-RADS Category 1: Negative Reviewed, dictated and finalized at location A. IMPRESSION: 1. No evidence for malignancy in either breast. 2. Routine yearly screening mammogram and regular clinical breast examination a re recommended. BI-RADS Category 1: Negative
--- OUTSIDE RECORDS SUMMARY | 2024-12-05 13:58 | XMS_ITS | Referral Summary ---
Author Organization [facility] Address [address] [place] [address] Care Team Providers Care Dishcloth Folder Name Role Phone Heron Abreu MD Primary Care Provider [phone] [phone] Allergies No known active allergies Medications diazePAM [...] for heartburn. Active omega-3 fatty acids/dha/epa (MEGARED [id number]-0 ORAL) Take by mouth. Active Active Problems Problem Noted Date Diagnosed Date Dizziness 08/10/2018 Assessment & Plan (08/10/2018 4:20 PM LAMINATION ASSEMBLER): She has a very mild orthostatic drop in her blood pressure, but with a blood pressure over 140 systolic she still felt slightly dizzy. Much of her dizziness actually sounds like vertigo, and she does have a past history of ear issues. Dyspnea on exertion 08/09/2018 Assessment & Plan (08/10/2018 4:19 PM LAMINATION ASSEMBLER): Sudden onset of exertional dyspnea several months [...] 08/09/2018 Assessment & Plan (08/10/2018 4:20 PM LAMINATION ASSEMBLER): Blood pressure is mildly elevated, which she [...] on file Legal Sex Female 6:13 AM LAMINATION ASSEMBLER Gender Identity Not on file Sexual Orientation Not on file Last Filed Vital Signs Vital Sign Reading Time Taken Comments Blood Pressure 142/80 08/09/2018 4:06 PM LAMINATION ASSEMBLER Pulse 62 08/09/2018 2:41 PM LAMINATION ASSEMBLER Temperature - - Respiratory Rate - - Oxygen Saturation - - Inhaled Oxygen Concentration - - Weight 85.7 kg (189 lb) 08/09/2018 2:41 PM LAMINATION ASSEMBLER Height 163.8 cm (5' 4.5 ) 08/09/2018 2:41 PM LAMINATION ASSEMBLER Body Mass Index 31.94 08/09/2018 2:41 PM LAMINATION ASSEMBLER Plan of Treatment Not on file Insurance [employer] ACCESS ANTHEM ACCESS Care Teams Dishcloth Folder Relationship Specialty Start Date End Date Heron Abreu MD PCP - General 11/09/17
--- OUTSIDE RECORDS SUMMARY | 2024-12-05 13:58 | XMS_ITS | Clinical Summary ---
Author Organization [facility] Address [address] [place] [address] Care Team Providers Care Statistical Methods Teacher Name Role Phone Heron Abreu MD Primary Care Provider +1 [phone] Allergies No known active allergies Medications diazePAM [...] for heartburn. Active omega-3 fatty acids/dha/epa (MEGARED [id number] ORAL) Take by mouth. Active Active Problems Problem Noted Date Diagnosed Date Dizziness 08/10/2018 Assessment & Plan (08/10/2018 4:20 PM LEARNING SUPPORT AIDE): She has a very mild orthostatic drop in her blood pressure, but with a blood pressure over 140 systolic she still felt slightly dizzy. Much of her dizziness actually sounds like vertigo, and she does have a past history of ear issues. Dyspnea on exertion 08/09/2018 Assessment & Plan (08/10/2018 4:19 PM LEARNING SUPPORT AIDE): Sudden onset of exertional dyspnea several months [...] 08/09/2018 Assessment & Plan (08/10/2018 4:20 PM LEARNING SUPPORT AIDE): Blood pressure is mildly elevated, which she [...] inhibitors. Surgical History Surgery Date Site/Laterality Comments [place] STAPEDECTOMY/STAPEDOTOMY Stapedotomy - (Added by TW Conv) [place] NEUROPLASTY &/TRANSPOS MEDIAN NRV CARPAL TUNNE Neuroplasty Decompression Median Nerve At Carpal Tunnel - (Added by TW Conv) [place] LIG/TRNSXJ FLP TUBE ABDL/ VAG APPR UNI/BI [...] on file Legal Sex Female 6:13 AM LEARNING SUPPORT AIDE Gender Identity Not on file Sexual Orientation Not on file Obstetrics History Last Filed Vital Signs Vital Sign Reading Time Taken Comments Blood Pressure 142/80 08/09/2018 4:06 PM LEARNING SUPPORT AIDE Pulse 62 08/09/2018 2:41 PM LEARNING SUPPORT AIDE Temperature - - Respiratory Rate - - Oxygen Saturation - - Inhaled Oxygen Concentration - - Weight 85.7 kg (189 lb) 08/09/2018 2:41 PM LEARNING SUPPORT AIDE Height 163.8 cm (5' 4.5 ) 08/09/2018 2:41 PM LEARNING SUPPORT AIDE Body Mass Index 31.94 08/09/2018 2:41 PM LEARNING SUPPORT AIDE Plan of Treatment Not on file Insurance ANTHEM ACCESS ANTHEM ACCESS Care Teams Statistical Methods Teacher Relationship Specialty Start Date End Date Heron Abreu MD PCP - General 11/09/17
== END 2024-12-05 12:47 | disposition home or self-care (01) ==
LOC: ANHIMG 12:48
PROVIDERS: PCP Family Medicine; Visit Provider Family Medicine
DX: R92.8 Other abnormal and inconclusive findings on diagnostic imaging of breast (principal)
CPT/HCPCS: 77062; 77066; G0279